=== PATIENT | male | born 1990 | race Caucasian/White ===

== ENCOUNTER 2017-04-03 10:49 | Inpatient (IN) | payer OTHER ==
[2017-04-03] MEDS ORDERED: NS 0.9% 1000 ML*IV.FLUID IV ONE (12:14)
[2017-04-03] MEDS ORDERED: Morphine INJ* 4 MG/ML 1 ML CARPUJECT IV ONE ×2 (12:16→15:23)
[2017-04-03] MEDS ORDERED: Ondansetron INJ* 2 MG/ML VIAL IV ONE (12:16)
[2017-04-03] MEDS ORDERED: Ciprofloxacin 400MG IVPREMIX(* 400 MG/200 ML BAG IVPB ONE (12:19)
[2017-04-03] MEDS ORDERED: metroNIDAZOLE IV 500 MG/100ML* 500 MG/100 ML BAG IVPB ONE (12:19)
[2017-04-03 13:25] LABS: Hematocrit 46 % (42-52); Hemoglobin 15.4 g/dl (14.0-18.0); Mean Corpuscular HGB Conc 34 g/dl (31-36); Mean Corpuscular Hemoglobin 30 pg (27-31); Mean Corpuscular Volume 91 fL (80-94); Mean Platelet Volume 8 um3 (7.4-10.4); Platelet Count 239 10^3/ul (150-450); Red Blood Count 5.08 10^6/ul (4.0-5.4); Red Cell Distribution Width 14 % (10.5-15); White Blood Count 13.8 10^3/ul (3.5-10.8)
[2017-04-03] MEDS ORDERED: Acetaminophen TAB* 325 MG PO ONE (13:26)
--- NOTE | 2017-04-03 13:26 | RAD ---
INDICATION: Tachycardia COMPARISON: None TECHNIQUE: An AP portable view obtained at 1255 hours is submitted. FINDINGS: Bones/Soft Tissues: There are no acute bony findings. Cardiomediastinal: The cardiomediastinal silhouette is normal. Lungs: There are no infiltrates. Pleura: There are no pleural effusions. Other: None IMPRESSION: NORMAL CHEST.
[2017-04-03 13:46] LABS: INR 1.19 (0.77-1.02)
[2017-04-03 13:55] LABS: ABS Basophils 0.1 10^3/ul (0-0.2); ABS Eosinophils 0 10^3/ul (0-0.6); ABS Lymphocytes 1.2 10^3/ul (1.0-4.8); ABS Monocytes 1.6 10^3/ul (0-0.8); ABS Neutrophils 10.9 10^3/ul (1.5-7.7); ABS Nucleated RBC 0 10^3/ul; Eosinophil % 0 % (0-6); Nucleated Red Blood Cells % 0
[2017-04-03 15:32] LABS: Urine Appearance Clear; Urine Blood Negative (Negative); Urine Color Yellow; Urine Ketones 2+ (Negative); Urine Protein Negative (Negative); Urine Urobilinogen Negative (Negative)
[2017-04-03 15:33] LABS: EGFR Non-African American 151.2 (>60)
[2017-04-03] MEDS ORDERED: Iohexol 300* (CONTRAST) 10 ML SDV IV ONE (15:46)
--- NOTE | 2017-04-03 16:38 | RAD ---
Indication: Abdominal pain. Contrast: Administered 115.1 ml of OMNIPAQUE 300 mg/ml CT of the abdomen and pelvis was performed after IV contrast administration. Coronal and sagittal reconstructed images were obtained. No oral contrast was administered. Lung bases demonstrate no pleural fluid, nodules or masses. Heart is of normal size without evidence of pericardial effusion. The liver is normal in size. There are no focal lesions or intrahepatic duct dilatation noted. The gallbladder demonstrates no calcified gallstones. No pericholecystic fluid or wall thickening is identified. The spleen is normal in size. The pancreas demonstrates no mass or pancreatic duct dilatation. The common duct is not dilated. No adrenal lesions are noted. The kidneys demonstrate symmetric nephrograms without focal lesions. No hydroureter is identified. Aorta and inferior vena cava are unremarkable. No dilated loops of bowel are noted. CT of the pelvis demonstrates normal appendix. Urinary bladder is otherwise unremarkable. No hernias are noted. There is no free intraperitoneal air noted. The stomach is poorly evaluated due to collapsed nature and lack of oral contrast. The bony structures are grossly unremarkable. IMPRESSION: No abnormal masses or fluid collections are noted. No free air is identified. The study is limited due to lack of oral contrast.
[2017-04-03] MEDS ORDERED: Pantoprazole IV* 40 MG IV ONE (17:59)
[2017-04-03] MEDS ORDERED: Ondansetron INJ* 2 MG/ML VIAL IV PRN (18:17)
[2017-04-03] MEDS ORDERED: metroNIDAZOLE IV 500 MG/100ML* 500 MG/100 ML BAG IVPB SCH (19:00)
--- NOTE | 2017-04-03 19:35 | ED ---
Declan Deshpande Thomas, scribed for Matthias Li MD on 04/03/17 at 1241 . Abdominal Pain/Male - HPI Summary HPI Summary: The patient is a 26 year old male presenting to the emergency department complaining of lower abdominal pain. He has a history of a perforated intestine that required surgery. Yesterday, the patient started feeling the same pains in his lower intestine with a severity of 9/10. He describes that he is unable to fart, and there is a pressure sensation, and the pain radiates to his lower back. The patient additionally complains of a sore throat, fever, and chills, for which he was given Ibuprofen, Tylenol, and a pain shot in the arm. He is incarcerated and was accompanied by two correctional officers today. He also has hepatitis C. - History of Current Complaint Chief Complaint: EDAbdPain Stated Complaint: ABD PAIN Time Seen by Provider: 04/03/17 11:49 Hx Obtained From: Patient Onset/Duration: Sudden Onset, Lasting Hours - The pain began last night., Still Present, Worse Since Timing: Constant Severity Initially: Severe Severity Currently: Severe Pain Intensity: 9 Pain Scale Used: 0-10 Numeric Location: Umbilical Radiates: Yes Radiates to: Back Character: Other: - Pressure - Allergies/Home Medications Allergies/Adverse Reactions: Allergies Allergy/AdvReac Type Severity Reaction Status Date / Time Amoxicillin Allergy Rash Verified 04/03/17 10:59 Codeine Allergy Hallucinati Verified 04/03/17 10:59 ons Penicillins Allergy Rash Verified 04/03/17 10:59 onions Allergy Swelling Uncoded 04/03/17 11:53 Of Face,Lips,& Throat Home Medications: Home Medications Acetaminophen TAB* [Tylenol TAB*] 650 mg PO Q6H PRN 04/03/17 [History Confirmed 04/03/17] Ibuprofen TAB* [Motrin TAB* 600 MG] 1 tab PO Q6H PRN 04/03/17 [History Confirmed 04/03/17] Magnesium Hydroxide LIQ* [Milk of Magnesia LIQ*] 30 ml PO .ONCE 04/03/17 [ History Confirmed 04/03/17] PMH/Surg Hx/FS Hx/Imm Hx GI History: Reports: Other GI Disorders - Bowel Perforation Psychiatric History: Reports: Hx Substance Abuse - Methamphetamine abuse Infectious Disease History: Yes Infectious Disease History: Denies: Traveled Outside the [place] in Last 30 Days - Family History Known Family History: Positive: Diabetes - Social History Alcohol Use: None Substance Use Type: Reports: Other Substance Use Comment - Amount & Last Used: Hx Meth use and Marijuan Smoking Status (MU): Former Smoker Review of Systems Positive: Fever, Chills Positive: Sore Throat Positive: Abdominal Pain Musculoskeletal: Other - Lower back pain All Other Systems Reviewed And Are Negative: Yes Physical Exam - Summary Physical Exam Summary: General: The patient is moderately ill appearing and has moderate pain distress. Skin: warm, color reflects adequate perfusion, dry Head: normal Eyes: EOMI, SARAH ENT: Posterior pharynx erythematous. The tonsils are 2+. Neck: supple, nontender Respiratory: CTA, breath sounds present Cardiovascular: Tachycardia. Regular rhythm. Abdomen: soft. Diffuse tenderness in the abdomen that is worse around the umbilicus. Bowel: hypoactive bowel sounds. Musculoskeletal: normal, strength/ROM intact Neurological: normal, sensory/motor intact, A&O x3 Psychological: affect/mood appropriate Triage Information Reviewed: Yes Vital Signs On Initial Exam: Initial Vitals Temp Pulse Resp BP Pulse Ox 99.6 F 113 16 159/82 97 04/03/17 10:59 04/03/17 10:59 04/03/17 10:59 04/03/17 10:59 04/03/17 10:59 Vital Signs Reviewed: Yes Diagnostics - Vital Signs Vital Signs Temp Pulse Resp BP Pulse Ox 04/03/17 11:52 102.5 F 04/03/17 11:50 113 120/84 99 04/03/17 11:48 116 99 04/03/17 10:59 99.6 F 113 16 159/82 97 - Laboratory Lab Results: Lab Results 04/03/17 04/03/17 04/03/17 Range/Units 11:17 12:56 13:11 WBC (3.5-10.8) 10^3/ul RBC (4.0-5.4) 10^6/ul Hgb (14.0-18.0) g/dl Hct (42-52) % MCV (80-94) fL MCH (27-31) pg MCHC (31-36) g/dl RDW (10.5-15) % Plt Count (150-450) 10^3/ul MPV (7.4-10.4) um3 Neut % (Auto) (38-83) % Lymph % (Auto) (25-47) % [place] % (Auto) (1-9) % Eos % (Auto) (0-6) % Baso % (Auto) (0-2) % Absolute Neuts (auto) (1.5-7.7) 10^3/ul Absolute Lymphs (auto) (1.0-4.8) 10^3/ul Absolute Monos (auto) (0-0.8) 10^3/ul Absolute Eos (auto) (0-0.6) 10^3/ul Absolute Basos (auto) (0-0.2) 10^3/ul Absolute Nucleated RBC 10^3/ul Nucleated RBC % INR (Anticoag Therapy) (0.77-1.02) APTT (26.0-36.3) seconds Sodium 133 (133-145) mmol/L Potassium 3.7 (3.5-5.0) mmol/L Chloride 100 L (101-111) mmol/L Carbon Dioxide 21 L (22-32) mmol/L Anion Gap 12 H (2-11) mmol/L BUN 8 (6-24) mg/dL Creatinine 0.64 L (0.67-1.17) mg/dL Est GFR ( Amer) 194.4 (>60) Est GFR (Non-Af Amer) 151.2 (>60) BUN/Creatinine Ratio 12.5 (8-20) Glucose 111 H (70-100) mg/dL Lactic Acid 0.7 (0.5-2.0) mmol/L Calcium 9.0 (8.6-10.3) mg/dL Total Bilirubin 0.40 (0.2-1.0) mg/dL AST 21 (13-39) U/L ALT 74 H (7-52) U/L Alkaline Phosphatase 60 (34-104) U/L Troponin I 0.03 (<0.04) ng/mL C-Reactive Protein 178.18 H (< 5.00) mg/L Total Protein 7.6 (6.4-8.9) g/dL Albumin 3.9 (3.2-5.2) g/dL Globulin 3.7 (2-4) g/dL Albumin/Globulin Ratio 1.1 (1-3) Lipase 27 (11.0-82.0) U/L Urine Color Urine Appearance Urine pH (5-9) Ur Specific [place] (1.010-1.030) Urine Protein (Negative) Urine Ketones (Negative) Urine Blood (Negative) Urine Nitrate (Negative) Urine Bilirubin (Negative) Urine Urobilinogen (Negative) Ur Leukocyte Esterase (Negative) Urine Glucose (Negative) Influenza A (Rapid) (Negative) Influenza B (Rapid) (Negative) Group A Strep Rapid Negative (Negative) Blood Type Antibody Screen 04/03/17 04/03/17 04/03/17 Range/Units 13:11 13:11 13:11 WBC 13.8 H (3.5-10.8) 10^3/ul RBC 5.08 (4.0-5.4) 10^6/ul Hgb 15.4 (14.0-18.0) g/dl Hct 46 (42-52) % MCV 91 (80-94) fL MCH 30 (27-31) pg MCHC 34 (31-36) g/dl RDW 14 (10.5-15) % Plt Count 239 (150-450) 10^3/ul MPV 8 (7.4-10.4) um3 Neut % (Auto) 78.8 (38-83) % Lymph % (Auto) 9.0 L (25-47) % Valencia % (Auto) 11.3 H (1-9) % Eos % (Auto) 0 (0-6) % Baso % (Auto) 0.9 (0-2) % Absolute Neuts (auto) 10.9 H (1.5-7.7) 10^3/ul Absolute Lymphs (auto) 1.2 (1.0-4.8) 10^3/ul Absolute Monos (auto) 1.6 H (0-0.8) 10^3/ul Absolute Eos (auto) 0 (0-0.6) 10^3/ul Absolute Basos (auto) 0.1 (0-0.2) 10^3/ul Absolute Nucleated RBC 0 10^3/ul Nucleated RBC % 0 INR (Anticoag Therapy) 1.19 H (0.77-1.02) APTT 34.0 (26.0-36.3) seconds Sodium (133-145) mmol/L Potassium (3.5-5.0) mmol/L Chloride (101-111) mmol/L Carbon Dioxide (22-32) mmol/L Anion Gap (2-11) mmol/L BUN (6-24) mg/dL Creatinine (0.67-1.17) mg/dL Est GFR ( Amer) (>60) Est GFR (Non-Af Amer) (>60) BUN/Creatinine Ratio (8-20) Glucose (70-100) mg/dL Lactic Acid (0.5-2.0) mmol/L Calcium (8.6-10.3) mg/dL Total Bilirubin (0.2-1.0) mg/dL AST (13-39) U/L ALT (7-52) U/L Alkaline Phosphatase (34-104) U/L Troponin I (<0.04) ng/mL C-Reactive Protein (< 5.00) mg/L Total Protein (6.4-8.9) g/dL Albumin (3.2-5.2) g/dL Globulin (2-4) g/dL Albumin/Globulin Ratio (1-3) Lipase (11.0-82.0) U/L Urine Color Urine Appearance Urine pH (5-9) Ur Specific [place] (1.010-1.030) Urine Protein (Negative) Urine Ketones (Negative) Urine Blood (Negative) Urine Nitrate (Negative) Urine Bilirubin (Negative) Urine Urobilinogen (Negative) Ur Leukocyte Esterase (Negative) Urine Glucose (Negative) Influenza A (Rapid) (Negative) Influenza B (Rapid) (Negative) Group A Strep Rapid (Negative) Blood Type A Positive Antibody Screen Negative 04/03/17 04/03/17 04/03/17 Range/Units 13:11 13:22 15:23 WBC (3.5-10.8) 10^3/ul RBC (4.0-5.4) 10^6/ul Hgb (14.0-18.0) g/dl Hct (42-52) % MCV (80-94) fL MCH (27-31) pg MCHC (31-36) g/dl RDW (10.5-15) % Plt Count (150-450) 10^3/ul MPV (7.4-10.4) um3 Neut % (Auto) (38-83) % Lymph % (Auto) (25-47) % [place] % (Auto) (1-9) % Eos % (Auto) (0-6) % Baso % (Auto) (0-2) % Absolute Neuts (auto) (1.5-7.7) 10^3/ul Absolute Lymphs (auto) (1.0-4.8) 10^3/ul Absolute Monos (auto) (0-0.8) 10^3/ul Absolute Eos (auto) (0-0.6) 10^3/ul Absolute Basos (auto) (0-0.2) 10^3/ul Absolute Nucleated RBC 10^3/ul Nucleated RBC % INR (Anticoag Therapy) (0.77-1.02) APTT (26.0-36.3) seconds Sodium (133-145) mmol/L Potassium (3.5-5.0) mmol/L Chloride (101-111) mmol/L Carbon Dioxide (22-32) mmol/L Anion Gap (2-11) mmol/L BUN (6-24) mg/dL Creatinine (0.67-1.17) mg/dL Est GFR ( Amer) (>60) Est GFR (Non-Af Amer) (>60) BUN/Creatinine Ratio (8-20) Glucose (70-100) mg/dL Lactic Acid 0.9 (0.5-2.0) mmol/L Calcium (8.6-10.3) mg/dL Total Bilirubin (0.2-1.0) mg/dL AST (13-39) U/L ALT (7-52) U/L Alkaline Phosphatase (34-104) U/L Troponin I (<0.04) ng/mL C-Reactive Protein (< 5.00) mg/L Total Protein (6.4-8.9) g/dL Albumin (3.2-5.2) g/dL Globulin (2-4) g/dL Albumin/Globulin Ratio (1-3) Lipase (11.0-82.0) U/L Urine Color Yellow Urine Appearance Clear Urine pH 6.0 (5-9) Ur Specific [place] 1.020 (1.010-1.030) Urine Protein Negative (Negative) Urine Ketones 2+ H (Negative) Urine Blood Negative (Negative) Urine Nitrate Negative (Negative) Urine Bilirubin Negative (Negative) Urine Urobilinogen Negative (Negative) Ur Leukocyte Esterase Negative (Negative) Urine Glucose Negative (Negative) Influenza A (Rapid) Negative (Negative) Influenza B (Rapid) Negative (Negative) Group A Strep Rapid (Negative) Blood Type Antibody Screen Result Diagrams: 04/03/17 13:11 04/03/17 13:11 Lab Statement: Any lab studies that have been ordered have been reviewed, and results considered in the medical decision making process. - Radiology CXR Xray Interpretation: No Acute Changes - NORMAL CHEST. Dr. Li has reviewed this report. Radiology Interpretation Completed By: Radiologist - CT CT Abd/Pel CT Interpretation: No Acute Changes - No abnormal masses or fluid collections are noted. No free air is identified. The study is limited due to lack of oral contrast. Dr. Li has reviewed this report. CT Interpretation Completed By: Radiologist - EKG 12:14 Cardiac Rate: Tachycardia EKG Rhythm: Sinus Tachycardia - at 114 BPM EKG Interpretation: Normal ST. No ectopy. Abdominal Pain Fem Course/Dx - Course Course Of Treatment: Medications reviewed. Allergies noted. BP noted and advised follow up with PMD. ADMIT HOSPITALIST - Diagnoses Provider Diagnoses: Blood pressure elevated without history of HTN, Abdominal pain, Fever - Provider Notifications Discussed Care Of Patient With: Antonio Dewitt Time Discussed With Above Provider: 17:32 Instructed by Provider To: Admit As Inpatient Discharge - Discharge Plan Condition: Stable Disposition: ADMITTED TO [facility] The documentation as recorded by the Declan lora Thomas accurately reflects the service I personally performed and the decisions made by Jen kahn William, MD.
[2017-04-03] MEDS: Morphine INJ* 4 MG/ML 1 ML CARPUJECT IV PRN (19:58)
[2017-04-03] MEDS: Acetaminophen TAB* 325 MG PO PRN (19:59)
[2017-04-03] MEDS: NS 0.9% 1000 ML* 1,000 ML IV SCH (20:10)
--- NOTE | 2017-04-03 20:59 | HP ---
CC: [facility]. * HISTORY AND PHYSICAL: DATE OF ADMISSION: 04/03/17 PRIMARY CARE PROVIDER: [facility]. ATTENDING PHYSICIAN WHILE IN THE HOSPITAL: Rodrick Isaac MD * (report dictated by Ronnie Bagley NP). CHIEF COMPLAINT: Not feeling well. HISTORY OF PRESENT ILLNESS: Mr. Leach is a 26-year-old male patient. He has a history of perforated ulcer in the past requiring a oversew. He has a history of GERD and hepatitis C. He comes into our ER today stating that Friday and Friday he just was not feeling well, he was feeling fatigued, he was feeling weakened. He was feeling just tired and just not feeling well. He was aching all over and he started having a sore throat last couple of days. He was having difficulty swallowing. He started having some abdominal discomfort, particularly in the epigastric area. He says he has not had a bowel movement in a couple of days. There has not been any nausea or vomiting. He says he went to the [facility] 2 days ago and he has been there last couple of days, but he started today having abdominal discomfort. Given the history, he had the surgery back in January, there was concern and he was sent to the hospital for evaluation. The surgery he had in January was the stomach oversew for the perforated ulcer. He came into the ED today, there was no obvious source for this fever. He said he recently was diagnosed with hepatitis C, he was tested negative for HIV. He says he is nauseous, but no sick contacts but he is in again a correctional facility. He was evaluated here in the ED, he was cultured , no obvious source was found, but it was noted that he was still continuing to have elevated fevers, we were asked to evaluate for admission. PAST MEDICAL HISTORY: Significant for, 1. GERD. 2. Peptic ulcer disease. 3. Hepatitis C. PAST SURGICAL HISTORY: He has had an oversew of a perforated ulcer done in January of 2017. MEDICATIONS: Home meds include: 1. Milk of mag 30 cc p.o. daily as needed. 2. Ibuprofen 1 tablet p.o. every 6 hours as needed. 3. Tylenol 650 mg every 6 hours as needed. ALLERGIES: He is allergic to PENICILLIN and CODEINE. FAMILY HISTORY: His mother, he says is healthy. Father has high blood pressure. SOCIAL HISTORY: He is an IV drug user. He does have a history of smoking 2 packs a day for 3 years, but since being in [place], it is about 4 cigarettes a day. He does not drink alcohol. Surrogate decision maker is not appointed at this point. REVIEW OF SYSTEMS: There is a documented fever here. He denied any significant weight change. There was no double vision. There is no ear discharge. He denies having any rhinorrhea. There was sore throat. He denied any thyroid enlargement. There was no chest pain, no orthopnea, no nocturnal dyspnea. There was no abdominal pain, there was no nausea or vomiting. There was no dysuria, there was no frequency. There was no seizure, no loss of consciousness. No pruritus, and no skin ulcerations. Review of 14 systems completed, all others negative. PHYSICAL EXAMINATION GENERAL: At this time, Mr. Leach is a 26-year-old male patient. He appears to be well nourished, well developed. He does not appear to be in any acute distress. VITAL SIGNS: Blood pressure 130/72, pulse 96, respirations 20, O2 sat 96% on room air. Temperature was 101, it was as high as 105.9. HEENT: Head: Atraumatic. Eyes: EOMs are intact. Sclerae are anicteric and not pale. NECK: Supple. Throat: Oral mucosa appears to be dry. No oropharyngeal erythema. LUNGS: Clear to auscultation. No wheezes, rales, or rhonchi. HEART: Sounds S1, S2. Regular rate and rhythm, no murmur, rubs or gallops. ABDOMEN: Soft, flat. There is tenderness around the umbilicus, but bowel sounds were present. EXTREMITIES: Pulses were 2+ throughout and 5/5 strength. NEUROLOGIC: He is awake, alert, oriented x3. No gross focal deficits. SKIN: Intact. He does have a midline abdominal incision. There is no erythema or discharge or drainage noted. Otherwise his skin was intact. DIAGNOSTIC STUDIES/LABORATORY DATA: WBC of 13.8, RBC of 5.08, hemoglobin of 15.4, hematocrit 46, platelet count of 239. INR is 1.19. PTT of 34. His sodium was 134, potassium was 3.7, chloride 100, bicarb was 21, BUN 8, creatinine 0.64, glucose 111, lactate 0.7, calcium 9, total bili is 0.4, AST 21 , ALT 74, alk phos 60. Troponin 0.03. CRP of 178. Lipase normal. Urine obtained, negative serologies, negative for strep and flu. Abdomen and pelvis CT obtained, impression: No abnormal mass or fluid collections are noted. No free air is identified. Study is limited to lack of oral contrast. He had a normal chest x-ray. He had an EKG showing a sinus tachycardia, rate of 114, no ST elevations or T-wave inversions. Old medical records were reviewed. IMPRESSION: Mr. Leach is a 26-year-old male patient coming into the ED today with complaints of sore throat, not feeling well, fatigued over the last several days. We were asked to evaluate for admission and he will be on observatory status for: 1. Fever. At this point, etiology is unclear. He is being pancultured. I think we should we should send off an HIV1 and 2, EBV panel and mono swab. Continue with IV fluids. I did put him on Ciprofloxacin and Flagyl. We will continue with normal saline at 150 an hour and will continue with supportive care. 2. Abdominal discomfort: At this point, his exam does appear to be benign. We will follow serial abdominal exams. If it does become an issue, we can also consult Surgery, but at this point, his abdomen is soft, he is not overtly tender, he is not guarding. I think we can just follow these. 3. History of perforated ulcer and gastroesophageal reflux disease. I have ordered PPI therapy. I would avoid using the ibuprofen. 4. History of hepatitis C. Can follow in the outpatient setting. He does not appear to be in fulminant hepatitis at this point, we will monitor. 5. DVT prophylaxis: SCDs have been ordered. 6. Code status: Full code. 7. Fluid and nutrition: He can have clear liquid diet. TIME SPENT: Time spent on the admission was 60 minutes, greater than half of the time was spent [id number] with the patient, obtaining history and physical , the other half of the time was spent going over the plan of care with the patient and implementing the plan of care. I did discuss plan of care with my attending, Dr. Isaac, he is in agreement. RONNIE BAGLEY NP [id number]/[facility] #: [id number] KIERAN
[2017-04-03] MEDS: metroNIDAZOLE IV 500 MG/100ML* 500 MG/100 ML BAG IVPB SCH (22:00)
[2017-04-03] MEDS: Senna TAB PO SCH (22:00)
[2017-04-03] MEDS: Docusate CAP* 100 MG PO SCH (22:00)
[2017-04-04] MEDS: Morphine INJ* 4 MG/ML 1 ML CARPUJECT IV PRN ×3 (00:08→08:13)
[2017-04-04] MEDS ORDERED: Ciprofloxacin 400MG IVPREMIX(* 400 MG/200 ML BAG IVPB SCH (02:00)
[2017-04-04] MEDS: Omeprazole CAP* 20 MG PO SCH (05:16)
[2017-04-04] MEDS: NS 0.9% 1000 ML* 1,000 ML IV SCH ×4 (05:16→21:05)
[2017-04-04] MEDS: metroNIDAZOLE IV 500 MG/100ML* 500 MG/100 ML BAG IVPB SCH (06:32)
[2017-04-04 06:35] LABS: Hematocrit 39 % (42-52); Hemoglobin 13.4 g/dl (14.0-18.0); Mean Corpuscular HGB Conc 34 g/dl (31-36); Mean Corpuscular Hemoglobin 31 pg (27-31); Mean Corpuscular Volume 91 fL (80-94); Mean Platelet Volume 7 um3 (7.4-10.4); Platelet Count 190 10^3/ul (150-450); Red Blood Count 4.32 10^6/ul (4.0-5.4); Red Cell Distribution Width 14 % (10.5-15)
[2017-04-04 06:37] LABS: ABS Basophils 0 10^3/ul (0-0.2); ABS Eosinophils 0.1 10^3/ul (0-0.6); ABS Lymphocytes 1.7 10^3/ul (1.0-4.8); ABS Monocytes 1.6 10^3/ul (0-0.8); ABS Neutrophils 6.6 10^3/ul (1.5-7.7); ABS Nucleated RBC 0 10^3/ul; Eosinophil % 0.9 % (0-6); Lymphocyte % 17.2 % (25-47); Nucleated Red Blood Cells % 0
[2017-04-04 06:53] LABS: INR 1.16 (0.77-1.02)
[2017-04-04] MEDS: Docusate CAP* 100 MG PO SCH ×2 (08:13→21:04)
--- NOTE | 2017-04-04 12:14 | PN ---
Subjective Date of Service: 04/04/17 Interval History: Abdominal pain present but not as severe. No BM or flatus x 2 days. +JUDD, no nausea/vomiting changes in vision, or neck stiffness +throat pain no cough Objective Active Medications: Acetaminophen (Tylenol Tab*) 650 mg PO Q4H PRN PRN Reason: FEVER/PAIN Last Admin: 04/04/17 00:00 Dose: 650 mg Docusate Sodium (Colace Cap*) 100 mg PO BID [facility] Last Admin: 04/04/17 08:13 Dose: 100 mg Sodium Chloride (Ns 0.9% 1000 Ml*) 1,000 mls @ 150 mls/hr IV PER RATE [facility] Last Admin: 04/04/17 05:16 Dose: 150 mls/hr Morphine Sulfate (Morphine Inj (Syringe)*) 4 mg IV Q4H PRN PRN Reason: PAIN Last Admin: 04/04/17 08:13 Dose: 4 mg Omeprazole (Prilosec Cap*) 20 mg PO 0600 [facility] Last Admin: 04/04/17 05:16 Dose: 20 mg Ondansetron HCl (Zofran Inj*) 4 mg IV Q6H PRN PRN Reason: NAUSEA Senna (Senokot Tab*) 2 tab PO BEDTIME [facility] Last Admin: 04/03/17 22:00 Dose: 2 tab Oxygen Devices in Use Now: None Appearance: well appearing, NAD Eyes: No Scleral Icterus, PERRLA Ears/Nose/Mouth/Throat: Mucous Membranes Moist, - - b/l tonsillar swelling with exudates Neck: NL Appearance and Movements; NL JVP, Trachea Midline, - - no LIZANDRO Respiratory: Symmetrical Chest Expansion and Respiratory Effort, Clear to Auscultation Cardiovascular: NL Sounds; No Murmurs; No JVD, RRR Abdominal: No Hepatosplenomegaly, - - soft, +bs, ND, mild epigastric TTP Extremities: No Edema, No Clubbing, Cyanosis Skin: No Rash or Ulcers, No Nodules or Sclerosis Neurological: Alert and Oriented x 3 Result Diagrams: 04/04/17 06:29 04/04/17 06:29 Additional Lab and Data: Lab Results 04/03/17 04/03/17 04/03/17 Range/Units 11:17 12:56 13:11 WBC (3.5-10.8) 10^3/ul RBC (4.0-5.4) 10^6/ul Hgb (14.0-18.0) g/dl Hct (42-52) % MCV (80-94) fL MCH (27-31) pg MCHC (31-36) g/dl RDW (10.5-15) % Plt Count (150-450) 10^3/ul MPV (7.4-10.4) um3 Neut % (Auto) (38-83) % Lymph % (Auto) (25-47) % [place] % (Auto) (1-9) % Eos % (Auto) (0-6) % Baso % (Auto) (0-2) % Absolute Neuts (auto) (1.5-7.7) 10^3/ul Absolute Lymphs (auto) (1.0-4.8) 10^3/ul Absolute Monos (auto) (0-0.8) 10^3/ul Absolute Eos (auto) (0-0.6) 10^3/ul Absolute Basos (auto) (0-0.2) 10^3/ul Absolute Nucleated RBC 10^3/ul Nucleated RBC % INR (Anticoag Therapy) (0.77-1.02) APTT (26.0-36.3) seconds Sodium 133 (133-145) mmol/L Potassium 3.7 (3.5-5.0) mmol/L Chloride 100 L (101-111) mmol/L Carbon Dioxide 21 L (22-32) mmol/L Anion Gap 12 H (2-11) mmol/L BUN 8 (6-24) mg/dL Creatinine 0.64 L (0.67-1.17) mg/dL Est GFR ( Amer) 194.4 (>60) Est GFR (Non-Af Amer) 151.2 (>60) BUN/Creatinine Ratio 12.5 (8-20) Glucose 111 H (70-100) mg/dL Lactic Acid 0.7 (0.5-2.0) mmol/L Calcium 9.0 (8.6-10.3) mg/dL Total Bilirubin 0.40 (0.2-1.0) mg/dL AST 21 (13-39) U/L ALT 74 H (7-52) U/L Alkaline Phosphatase 60 (34-104) U/L Troponin I 0.03 (<0.04) ng/mL C-Reactive Protein 178.18 H (< 5.00) mg/L Total Protein 7.6 (6.4-8.9) g/dL Albumin 3.9 (3.2-5.2) g/dL Globulin 3.7 (2-4) g/dL Albumin/Globulin Ratio 1.1 (1-3) Lipase 27 (11.0-82.0) U/L Urine Color Urine Appearance Urine pH (5-9) Ur Specific [place] (1.010-1.030) Urine Protein (Negative) Urine Ketones (Negative) Urine Blood (Negative) Urine Nitrate (Negative) Urine Bilirubin (Negative) Urine Urobilinogen (Negative) Ur Leukocyte Esterase (Negative) Urine Glucose (Negative) Influenza A (Rapid) (Negative) Influenza B (Rapid) (Negative) Group A Strep Rapid Negative (Negative) Blood Type Antibody Screen 04/03/17 04/03/17 04/03/17 Range/Units 13:11 13:11 13:11 WBC 13.8 H (3.5-10.8) 10^3/ul RBC 5.08 (4.0-5.4) 10^6/ul Hgb 15.4 (14.0-18.0) g/dl Hct 46 (42-52) % MCV 91 (80-94) fL MCH 30 (27-31) pg MCHC 34 (31-36) g/dl RDW 14 (10.5-15) % Plt Count 239 (150-450) 10^3/ul MPV 8 (7.4-10.4) um3 Neut % (Auto) 78.8 (38-83) % Lymph % (Auto) 9.0 L (25-47) % [place] % (Auto) 11.3 H (1-9) % Eos % (Auto) 0 (0-6) % Baso % (Auto) 0.9 (0-2) % Absolute Neuts (auto) 10.9 H (1.5-7.7) 10^3/ul Absolute Lymphs (auto) 1.2 (1.0-4.8) 10^3/ul Absolute Monos (auto) 1.6 H (0-0.8) 10^3/ul Absolute Eos (auto) 0 (0-0.6) 10^3/ul Absolute Basos (auto) 0.1 (0-0.2) 10^3/ul Absolute Nucleated RBC 0 10^3/ul Nucleated RBC % 0 INR (Anticoag Therapy) 1.19 H (0.77-1.02) APTT 34.0 (26.0-36.3) seconds Sodium (133-145) mmol/L Potassium (3.5-5.0) mmol/L Chloride (101-111) mmol/L Carbon Dioxide (22-32) mmol/L Anion Gap (2-11) mmol/L BUN (6-24) mg/dL Creatinine (0.67-1.17) mg/dL Est GFR ( Amer) (>60) Est GFR (Non-Af Amer) (>60) BUN/Creatinine Ratio (8-20) Glucose (70-100) mg/dL Lactic Acid (0.5-2.0) mmol/L Calcium (8.6-10.3) mg/dL Total Bilirubin (0.2-1.0) mg/dL AST (13-39) U/L ALT (7-52) U/L Alkaline Phosphatase (34-104) U/L Troponin I (<0.04) ng/mL C-Reactive Protein (< 5.00) mg/L Total Protein (6.4-8.9) g/dL Albumin (3.2-5.2) g/dL Globulin (2-4) g/dL Albumin/Globulin Ratio (1-3) Lipase (11.0-82.0) U/L Urine Color Urine Appearance Urine pH (5-9) Ur Specific [place] (1.010-1.030) Urine Protein (Negative) Urine Ketones (Negative) Urine Blood (Negative) Urine Nitrate (Negative) Urine Bilirubin (Negative) Urine Urobilinogen (Negative) Ur Leukocyte Esterase (Negative) Urine Glucose (Negative) Influenza A (Rapid) (Negative) Influenza B (Rapid) (Negative) Group A Strep Rapid (Negative) Blood Type A Positive Antibody Screen Negative 04/03/17 04/03/17 04/03/17 Range/Units 13:11 13:22 15:23 WBC (3.5-10.8) 10^3/ul RBC (4.0-5.4) 10^6/ul Hgb (14.0-18.0) g/dl Hct (42-52) % MCV (80-94) fL MCH (27-31) pg MCHC (31-36) g/dl RDW (10.5-15) % Plt Count (150-450) 10^3/ul MPV (7.4-10.4) um3 Neut % (Auto) (38-83) % Lymph % (Auto) (25-47) % [place] % (Auto) (1-9) % Eos % (Auto) (0-6) % Baso % (Auto) (0-2) % Absolute Neuts (auto) (1.5-7.7) 10^3/ul Absolute Lymphs (auto) (1.0-4.8) 10^3/ul Absolute Monos (auto) (0-0.8) 10^3/ul Absolute Eos (auto) (0-0.6) 10^3/ul Absolute Basos (auto) (0-0.2) 10^3/ul Absolute Nucleated RBC 10^3/ul Nucleated RBC % INR (Anticoag Therapy) (0.77-1.02) APTT (26.0-36.3) seconds Sodium (133-145) mmol/L Potassium (3.5-5.0) mmol/L Chloride (101-111) mmol/L Carbon Dioxide (22-32) mmol/L Anion Gap (2-11) mmol/L BUN (6-24) mg/dL Creatinine (0.67-1.17) mg/dL Est GFR ( Amer) (>60) Est GFR (Non-Af Amer) (>60) BUN/Creatinine Ratio (8-20) Glucose (70-100) mg/dL Lactic Acid 0.9 (0.5-2.0) mmol/L Calcium (8.6-10.3) mg/dL Total Bilirubin (0.2-1.0) mg/dL AST (13-39) U/L ALT (7-52) U/L Alkaline Phosphatase (34-104) U/L Troponin I (<0.04) ng/mL C-Reactive Protein (< 5.00) mg/L Total Protein (6.4-8.9) g/dL Albumin (3.2-5.2) g/dL Globulin (2-4) g/dL Albumin/Globulin Ratio (1-3) Lipase (11.0-82.0) U/L Urine Color Yellow Urine Appearance Clear Urine pH 6.0 (5-9) Ur Specific [place] 1.020 (1.010-1.030) Urine Protein Negative (Negative) Urine Ketones 2+ H (Negative) Urine Blood Negative (Negative) Urine Nitrate Negative (Negative) Urine Bilirubin Negative (Negative) Urine Urobilinogen Negative (Negative) Ur Leukocyte Esterase Negative (Negative) Urine Glucose Negative (Negative) Influenza A (Rapid) Negative (Negative) Influenza B (Rapid) Negative (Negative) Group A Strep Rapid (Negative) Blood Type Antibody Screen Assess/Plan/Problems-Billing Assessment: 26 yo M presents with 5 days chills/myalgias, headache and 2 days abdominal pain found with high fevers - Patient Problems (1) Sepsis Comment: +sirs on admission but +1 on qsofa High fevers associated with tonsilar swelling and exudates as well as relative monocytosis Check GC orophargyngeal swab Check throat cultures Change abx to clindamycin HIV results still pending Influenza remains on the differential despite negative result - fevers/myalgias/ JUDD and other inmates recently with Flu Doubt meningitis - 1 week illness, generally getting better, no mental status changes or otehr neurologic involevment (2) Monocytosis Comment: Doubt malignancy syphilis, endocarditis, TB - but no other associated associated symptoms (3) Abdominal pain Comment: h/o perferated ulcer no flatus CT abd/pelvis but no obstruction monitor for worsening symptoms can consider repeat with contrast if warrented (4) DVT prophylaxis Comment: lovenox
[2017-04-04] MEDS: Morphine INJ* 2 MG/ML 1 ML SYRINGE (TWO MG - NEW SYRINGE VERSION) IV PRN ×3 (13:02→22:29)
[2017-04-04] MEDS: Enoxaparin(*) 40 MG/0.4 ML SYR SUBCUT SCH (13:03)
[2017-04-04] MEDS: Clindamycin 600 MG IVPREMIX(* 600 MG/50 ML SDV IV SCH ×2 (13:29→21:05)
[2017-04-04] MEDS: Senna TAB PO SCH (21:04)
[2017-04-04] MEDS: Acetaminophen TAB* 325 MG PO PRN ×2 (21:05)
[2017-04-05] MEDS: NS 0.9% 1000 ML* 1,000 ML IV SCH (04:47)
[2017-04-05] MEDS: Clindamycin 600 MG IVPREMIX(* 600 MG/50 ML SDV IV SCH ×3 (04:47→21:09)
[2017-04-05] MEDS: Morphine INJ* 2 MG/ML 1 ML SYRINGE (TWO MG - NEW SYRINGE VERSION) IV PRN (04:55)
[2017-04-05] MEDS: Omeprazole CAP* 20 MG PO SCH (04:55)
--- NOTE | 2017-04-05 07:56 | PN ---
Subjective Date of Service: 04/05/17 Interval History: Pt states he still feels poorly. He states he still has abdominal pain, he has not had a BM and has not passed any gas. He does admit to being hungry however. He states his throat is also still sore. Objective Active Medications: Acetaminophen (Tylenol Tab*) 650 mg PO Q4H PRN PRN Reason: FEVER/PAIN Last Admin: 04/04/17 21:05 Dose: 650 mg Docusate Sodium (Colace Cap*) 100 mg PO BID [facility] Last Admin: 04/04/17 21:04 Dose: 100 mg Enoxaparin Sodium (Lovenox(*)) 40 mg SUBCUT Q24H [facility] Last Admin: 04/04/17 13:03 Dose: 40 mg Sodium Chloride (Ns 0.9% 1000 Ml*) 1,000 mls @ 150 mls/hr IV PER RATE [facility] Last Admin: 04/05/17 04:47 Dose: 150 mls/hr Clindamycin HCl/Dextrose (Cleocin 600 Mg Ivpremix(*) Sdv) 600 mg in 50 mls @ 100 mls/hr IV Q8H [facility] Last Admin: 04/05/17 04:47 Dose: 100 mls/hr Morphine Sulfate (Morphine Inj (Syringe)*) 2 mg IV Q4H PRN PRN Reason: PAIN Last Admin: 04/05/17 04:55 Dose: 2 mg Omeprazole (Prilosec Cap*) 20 mg PO 0600 [facility] Last Admin: 04/05/17 04:55 Dose: 20 mg Ondansetron HCl (Zofran Inj*) 4 mg IV Q6H PRN PRN Reason: NAUSEA Senna (Senokot Tab*) 2 tab PO BEDTIME [facility] Last Admin: 04/04/17 21:04 Dose: 2 tab Vital Signs - 8 hr 04/05/17 04/05/17 04/05/17 02:17 03:36 04:55 Temperature 97.5 F Pulse Rate 65 Respiratory 16 16 18 Rate Blood Pressure 127/70 (mmHg) O2 Sat by Pulse 100 Oximetry 04/05/17 06:14 Temperature Pulse Rate Respiratory 14 Rate Blood Pressure (mmHg) O2 Sat by Pulse Oximetry Oxygen Devices in Use Now: None Appearance: Young male standing in room, NAD Eyes: No Scleral Icterus Ears/Nose/Mouth/Throat: Mucous Membranes Moist Respiratory: Symmetrical Chest Expansion and Respiratory Effort, Clear to Auscultation Cardiovascular: NL Sounds; No Murmurs; No JVD, RRR, No Edema Abdominal: NL Sounds; No Tenderness; No Distention Extremities: No Clubbing, Cyanosis Skin: No Rash or Ulcers, No Nodules or Sclerosis Neurological: Alert and Oriented x 3 Result Diagrams: 04/04/17 06:29 04/04/17 06:29 Additional Lab and Data: Lab Results 04/03/17 04/03/17 04/03/17 Range/Units 11:17 12:56 13:11 WBC (3.5-10.8) 10^3/ul RBC (4.0-5.4) 10^6/ul Hgb (14.0-18.0) g/dl Hct (42-52) % MCV (80-94) fL MCH (27-31) pg MCHC (31-36) g/dl RDW (10.5-15) % Plt Count (150-450) 10^3/ul MPV (7.4-10.4) um3 Neut % (Auto) (38-83) % Lymph % (Auto) (25-47) % [place] % (Auto) (1-9) % Eos % (Auto) (0-6) % Baso % (Auto) (0-2) % Absolute Neuts (auto) (1.5-7.7) 10^3/ul Absolute Lymphs (auto) (1.0-4.8) 10^3/ul Absolute Monos (auto) (0-0.8) 10^3/ul Absolute Eos (auto) (0-0.6) 10^3/ul Absolute Basos (auto) (0-0.2) 10^3/ul Absolute Nucleated RBC 10^3/ul Nucleated RBC % INR (Anticoag Therapy) (0.77-1.02) APTT (26.0-36.3) seconds Sodium 133 (133-145) mmol/L Potassium 3.7 (3.5-5.0) mmol/L Chloride 100 L (101-111) mmol/L Carbon Dioxide 21 L (22-32) mmol/L Anion Gap 12 H (2-11) mmol/L BUN 8 (6-24) mg/dL Creatinine 0.64 L (0.67-1.17) mg/dL Est GFR ( Amer) 194.4 (>60) Est GFR (Non-Af Amer) 151.2 (>60) BUN/Creatinine Ratio 12.5 (8-20) Glucose 111 H (70-100) mg/dL Lactic Acid 0.7 (0.5-2.0) mmol/L Calcium 9.0 (8.6-10.3) mg/dL Total Bilirubin 0.40 (0.2-1.0) mg/dL AST 21 (13-39) U/L ALT 74 H (7-52) U/L Alkaline Phosphatase 60 (34-104) U/L Troponin I 0.03 (<0.04) ng/mL C-Reactive Protein 178.18 H (< 5.00) mg/L Total Protein 7.6 (6.4-8.9) g/dL Albumin 3.9 (3.2-5.2) g/dL Globulin 3.7 (2-4) g/dL Albumin/Globulin Ratio 1.1 (1-3) Lipase 27 (11.0-82.0) U/L Urine Color Urine Appearance Urine pH (5-9) Ur Specific [place] (1.010-1.030) Urine Protein (Negative) Urine Ketones (Negative) Urine Blood (Negative) Urine Nitrate (Negative) Urine Bilirubin (Negative) Urine Urobilinogen (Negative) Ur Leukocyte Esterase (Negative) Urine Glucose (Negative) Influenza A (Rapid) (Negative) Influenza B (Rapid) (Negative) Group A Strep Rapid Negative (Negative) Blood Type Antibody Screen 04/03/17 04/03/17 04/03/17 Range/Units 13:11 13:11 13:11 WBC 13.8 H (3.5-10.8) 10^3/ul RBC 5.08 (4.0-5.4) 10^6/ul Hgb 15.4 (14.0-18.0) g/dl Hct 46 (42-52) % MCV 91 (80-94) fL MCH 30 (27-31) pg MCHC 34 (31-36) g/dl RDW 14 (10.5-15) % Plt Count 239 (150-450) 10^3/ul MPV 8 (7.4-10.4) um3 Neut % (Auto) 78.8 (38-83) % Lymph % (Auto) 9.0 L (25-47) % [place] % (Auto) 11.3 H (1-9) % Eos % (Auto) 0 (0-6) % Baso % (Auto) 0.9 (0-2) % Absolute Neuts (auto) 10.9 H (1.5-7.7) 10^3/ul Absolute Lymphs (auto) 1.2 (1.0-4.8) 10^3/ul Absolute Monos (auto) 1.6 H (0-0.8) 10^3/ul Absolute Eos (auto) 0 (0-0.6) 10^3/ul Absolute Basos (auto) 0.1 (0-0.2) 10^3/ul Absolute Nucleated RBC 0 10^3/ul Nucleated RBC % 0 INR (Anticoag Therapy) 1.19 H (0.77-1.02) APTT 34.0 (26.0-36.3) seconds Sodium (133-145) mmol/L Potassium (3.5-5.0) mmol/L Chloride (101-111) mmol/L Carbon Dioxide (22-32) mmol/L Anion Gap (2-11) mmol/L BUN (6-24) mg/dL Creatinine (0.67-1.17) mg/dL Est GFR ( Amer) (>60) Est GFR (Non-Af Amer) (>60) BUN/Creatinine Ratio (8-20) Glucose (70-100) mg/dL Lactic Acid (0.5-2.0) mmol/L Calcium (8.6-10.3) mg/dL Total Bilirubin (0.2-1.0) mg/dL AST (13-39) U/L ALT (7-52) U/L Alkaline Phosphatase (34-104) U/L Troponin I (<0.04) ng/mL C-Reactive Protein (< 5.00) mg/L Total Protein (6.4-8.9) g/dL Albumin (3.2-5.2) g/dL Globulin (2-4) g/dL Albumin/Globulin Ratio (1-3) Lipase (11.0-82.0) U/L Urine Color Urine Appearance Urine pH (5-9) Ur Specific [place] (1.010-1.030) Urine Protein (Negative) Urine Ketones (Negative) Urine Blood (Negative) Urine Nitrate (Negative) Urine Bilirubin (Negative) Urine Urobilinogen (Negative) Ur Leukocyte Esterase (Negative) Urine Glucose (Negative) Influenza A (Rapid) (Negative) Influenza B (Rapid) (Negative) Group A Strep Rapid (Negative) Blood Type A Positive Antibody Screen Negative 04/03/17 04/03/17 04/03/17 Range/Units 13:11 13:22 15:23 WBC (3.5-10.8) 10^3/ul RBC (4.0-5.4) 10^6/ul Hgb (14.0-18.0) g/dl Hct (42-52) % MCV (80-94) fL MCH (27-31) pg MCHC (31-36) g/dl RDW (10.5-15) % Plt Count (150-450) 10^3/ul MPV (7.4-10.4) um3 Neut % (Auto) (38-83) % Lymph % (Auto) (25-47) % [place] % (Auto) (1-9) % Eos % (Auto) (0-6) % Baso % (Auto) (0-2) % Absolute Neuts (auto) (1.5-7.7) 10^3/ul Absolute Lymphs (auto) (1.0-4.8) 10^3/ul Absolute Monos (auto) (0-0.8) 10^3/ul Absolute Eos (auto) (0-0.6) 10^3/ul Absolute Basos (auto) (0-0.2) 10^3/ul Absolute Nucleated RBC 10^3/ul Nucleated RBC % INR (Anticoag Therapy) (0.77-1.02) APTT (26.0-36.3) seconds Sodium (133-145) mmol/L Potassium (3.5-5.0) mmol/L Chloride (101-111) mmol/L Carbon Dioxide (22-32) mmol/L Anion Gap (2-11) mmol/L BUN (6-24) mg/dL Creatinine (0.67-1.17) mg/dL Est GFR ( Amer) (>60) Est GFR (Non-Af Amer) (>60) BUN/Creatinine Ratio (8-20) Glucose (70-100) mg/dL Lactic Acid 0.9 (0.5-2.0) mmol/L Calcium (8.6-10.3) mg/dL Total Bilirubin (0.2-1.0) mg/dL AST (13-39) U/L ALT (7-52) U/L Alkaline Phosphatase (34-104) U/L Troponin I (<0.04) ng/mL C-Reactive Protein (< 5.00) mg/L Total Protein (6.4-8.9) g/dL Albumin (3.2-5.2) g/dL Globulin (2-4) g/dL Albumin/Globulin Ratio (1-3) Lipase (11.0-82.0) U/L Urine Color Yellow Urine Appearance Clear Urine pH 6.0 (5-9) Ur Specific [place] 1.020 (1.010-1.030) Urine Protein Negative (Negative) Urine Ketones 2+ H (Negative) Urine Blood Negative (Negative) Urine Nitrate Negative (Negative) Urine Bilirubin Negative (Negative) Urine Urobilinogen Negative (Negative) Ur Leukocyte Esterase Negative (Negative) Urine Glucose Negative (Negative) Influenza A (Rapid) Negative (Negative) Influenza B (Rapid) Negative (Negative) Group A Strep Rapid (Negative) Blood Type Antibody Screen Assess/Plan/Problems-Billing Mr Leach is a 26 yo M who presents with 5 days chills/myalgias, headache and 2 days abdominal pain found to have a fever and possible pharyngitis though no clear cause of his abdominal pain has been found. - Patient Problems (1) Pharyngitis Current Visit: Yes Status: Acute Code(s): J02.9 - ACUTE PHARYNGITIS, UNSPECIFIED SNOMED Code(s): 489315359 Comment: I suspect the patient's fever was secondary to a viral pharyngitis. His tonsil are mildly enlarged but no exudate noted. His fever has resolved. Throat culture is pending. Will continue clindamycin for now. (2) Abdominal pain Current Visit: Yes Status: Acute Code(s): R10.9 - UNSPECIFIED ABDOMINAL PAIN SNOMED Code(s): 11683161 Comment: The etiology of the abdominal pain is not clear. He reports no BM or flatus, though he feels hungry. He does not have concerning signs on exam. Will advance his diet to regular and monitor for worsened symptoms. (3) DVT prophylaxis Current Visit: Yes Status: Acute Code(s): MPX0474 - SNOMED Code(s): 689303443 Comment: bran (4) Full code status Current Visit: Yes Status: Acute Code(s): Z78.9 - OTHER SPECIFIED HEALTH STATUS SNOMED Code(s): 555807488
[2017-04-05] MEDS ORDERED: Ibuprofen TAB* 600 MG PO PRN (07:58)
[2017-04-05] MEDS: Docusate CAP* 100 MG PO SCH ×2 (08:32→21:09)
--- NOTE | 2017-04-05 08:32 | RAD ---
HISTORY: Evaluate for obstruction, fever COMPARISONS: CT dated April 03, 2017 VIEWS: Frontal views of the abdomen. FINDINGS: BOWEL: There is a nonspecific bowel gas pattern, with nondilated small bowel gas noted. There is minimal stool within the colon. CALCULI: There are no abnormal calculi. BONES AND SOFT TISSUES: There are no osseous abnormalities. OTHER FINDINGS: The lung bases are clear. There is no subphrenic gas. IMPRESSION: NONSPECIFIC BOWEL GAS PATTERN. NO APPRECIABLE FREE INTRAPERITONEAL AIR.
[2017-04-05] MEDS: Polyethylene Glycol 3350* 17 GM PACKET PO SCH (08:33)
[2017-04-05] MEDS: Acetaminophen TAB* 325 MG PO PRN ×2 (08:35→21:11)
[2017-04-05] MEDS: Enoxaparin(*) 40 MG/0.4 ML SYR SUBCUT SCH (12:18)
[2017-04-05] MEDS: Senna TAB PO SCH (21:09)
[2017-04-06] MEDS ORDERED: CMCS:Melatonin (NF) 3 MG TAB PO PRN (00:56)
[2017-04-06] MEDS: Omeprazole CAP* 20 MG PO SCH (05:16)
[2017-04-06] MEDS: Clindamycin 600 MG IVPREMIX(* 600 MG/50 ML SDV IV SCH (05:16)
--- NOTE | 2017-04-06 08:07 | PN ---
Subjective Date of Service: 04/06/17 Interval History: Pt is feeling a little better today. He states his throat is not sore at all any more. He tolerated the regular food without increased pain. He had an episode of diarrhea this AM. Objective Active Medications: Acetaminophen (Tylenol Tab*) 650 mg PO Q4H PRN PRN Reason: FEVER/PAIN Last Admin: 04/05/17 21:11 Dose: 650 mg Docusate Sodium (Colace Cap*) 100 mg PO BID [facility] Last Admin: 04/05/17 21:09 Dose: 100 mg Enoxaparin Sodium (Lovenox(*)) 40 mg SUBCUT Q24H [facility] Last Admin: 04/05/17 12:18 Dose: 40 mg Clindamycin HCl/Dextrose (Cleocin 600 Mg Ivpremix(*) Sdv) 600 mg in 50 mls @ 100 mls/hr IV Q8H [facility] Last Admin: 04/06/17 05:16 Dose: 100 mls/hr Ibuprofen (Motrin Tab*) 600 mg PO Q6H PRN PRN Reason: PAIN Melatonin (Melatonin (Nf)) 3 mg PO BEDTIME PRN PRN Reason: INSOMNIA Omeprazole (Prilosec Cap*) 20 mg PO 0600 [facility] Last Admin: 04/06/17 05:16 Dose: 20 mg Ondansetron HCl (Zofran Inj*) 4 mg IV Q6H PRN PRN Reason: NAUSEA Polyethylene Glycol/Electrolytes (Miralax*) 17 gm PO DAILY [facility] Last Admin: 04/05/17 08:33 Dose: 17 gm Senna (Senokot Tab*) 2 tab PO BEDTIME [facility] Last Admin: 04/05/17 21:09 Dose: 2 tab Vital Signs - 8 hr 04/06/17 03:20 Temperature 97.5 F Pulse Rate 57 Respiratory 16 Rate Blood Pressure 106/49 (mmHg) O2 Sat by Pulse 99 Oximetry Oxygen Devices in Use Now: None Appearance: Young male lying in bed, NAD Eyes: No Scleral Icterus Ears/Nose/Mouth/Throat: Clear Oropharnyx, Mucous Membranes Moist Respiratory: Symmetrical Chest Expansion and Respiratory Effort, Clear to Auscultation Cardiovascular: NL Sounds; No Murmurs; No JVD, RRR, No Edema Abdominal: NL Sounds; No Tenderness; No Distention Extremities: No Clubbing, Cyanosis Skin: No Rash or Ulcers, No Nodules or Sclerosis Neurological: Alert and Oriented x 3 Result Diagrams: 04/04/17 06:29 04/04/17 06:29 Additional Lab and Data: Lab Results 04/03/17 04/03/17 04/03/17 Range/Units 11:17 12:56 13:11 WBC (3.5-10.8) 10^3/ul RBC (4.0-5.4) 10^6/ul Hgb (14.0-18.0) g/dl Hct (42-52) % MCV (80-94) fL MCH (27-31) pg MCHC (31-36) g/dl RDW (10.5-15) % Plt Count (150-450) 10^3/ul MPV (7.4-10.4) um3 Neut % (Auto) (38-83) % Lymph % (Auto) (25-47) % Shelby % (Auto) (1-9) % Eos % (Auto) (0-6) % Baso % (Auto) (0-2) % Absolute Neuts (auto) (1.5-7.7) 10^3/ul Absolute Lymphs (auto) (1.0-4.8) 10^3/ul Absolute Monos (auto) (0-0.8) 10^3/ul Absolute Eos (auto) (0-0.6) 10^3/ul Absolute Basos (auto) (0-0.2) 10^3/ul Absolute Nucleated RBC 10^3/ul Nucleated RBC % INR (Anticoag Therapy) (0.77-1.02) APTT (26.0-36.3) seconds Sodium 133 (133-145) mmol/L Potassium 3.7 (3.5-5.0) mmol/L Chloride 100 L (101-111) mmol/L Carbon Dioxide 21 L (22-32) mmol/L Anion Gap 12 H (2-11) mmol/L BUN 8 (6-24) mg/dL Creatinine 0.64 L (0.67-1.17) mg/dL Est GFR ( Amer) 194.4 (>60) Est GFR (Non-Af Amer) 151.2 (>60) BUN/Creatinine Ratio 12.5 (8-20) Glucose 111 H (70-100) mg/dL Lactic Acid 0.7 (0.5-2.0) mmol/L Calcium 9.0 (8.6-10.3) mg/dL Total Bilirubin 0.40 (0.2-1.0) mg/dL AST 21 (13-39) U/L ALT 74 H (7-52) U/L Alkaline Phosphatase 60 (34-104) U/L Troponin I 0.03 (<0.04) ng/mL C-Reactive Protein 178.18 H (< 5.00) mg/L Total Protein 7.6 (6.4-8.9) g/dL Albumin 3.9 (3.2-5.2) g/dL Globulin 3.7 (2-4) g/dL Albumin/Globulin Ratio 1.1 (1-3) Lipase 27 (11.0-82.0) U/L Urine Color Urine Appearance Urine pH (5-9) Ur Specific Spring (1.010-1.030) Urine Protein (Negative) Urine Ketones (Negative) Urine Blood (Negative) Urine Nitrate (Negative) Urine Bilirubin (Negative) Urine Urobilinogen (Negative) Ur Leukocyte Esterase (Negative) Urine Glucose (Negative) Influenza A (Rapid) (Negative) Influenza B (Rapid) (Negative) Group A Strep Rapid Negative (Negative) Blood Type Antibody Screen 04/03/17 04/03/17 04/03/17 Range/Units 13:11 13:11 13:11 WBC 13.8 H (3.5-10.8) 10^3/ul RBC 5.08 (4.0-5.4) 10^6/ul Hgb 15.4 (14.0-18.0) g/dl Hct 46 (42-52) % MCV 91 (80-94) fL MCH 30 (27-31) pg MCHC 34 (31-36) g/dl RDW 14 (10.5-15) % Plt Count 239 (150-450) 10^3/ul MPV 8 (7.4-10.4) um3 Neut % (Auto) 78.8 (38-83) % Lymph % (Auto) 9.0 L (25-47) % Shelby % (Auto) 11.3 H (1-9) % Eos % (Auto) 0 (0-6) % Baso % (Auto) 0.9 (0-2) % Absolute Neuts (auto) 10.9 H (1.5-7.7) 10^3/ul Absolute Lymphs (auto) 1.2 (1.0-4.8) 10^3/ul Absolute Monos (auto) 1.6 H (0-0.8) 10^3/ul Absolute Eos (auto) 0 (0-0.6) 10^3/ul Absolute Basos (auto) 0.1 (0-0.2) 10^3/ul Absolute Nucleated RBC 0 10^3/ul Nucleated RBC % 0 INR (Anticoag Therapy) 1.19 H (0.77-1.02) APTT 34.0 (26.0-36.3) seconds Sodium (133-145) mmol/L Potassium (3.5-5.0) mmol/L Chloride (101-111) mmol/L Carbon Dioxide (22-32) mmol/L Anion Gap (2-11) mmol/L BUN (6-24) mg/dL Creatinine (0.67-1.17) mg/dL Est GFR ( Amer) (>60) Est GFR (Non-Af Amer) (>60) BUN/Creatinine Ratio (8-20) Glucose (70-100) mg/dL Lactic Acid (0.5-2.0) mmol/L Calcium (8.6-10.3) mg/dL Total Bilirubin (0.2-1.0) mg/dL AST (13-39) U/L ALT (7-52) U/L Alkaline Phosphatase (34-104) U/L Troponin I (<0.04) ng/mL C-Reactive Protein (< 5.00) mg/L Total Protein (6.4-8.9) g/dL Albumin (3.2-5.2) g/dL Globulin (2-4) g/dL Albumin/Globulin Ratio (1-3) Lipase (11.0-82.0) U/L Urine Color Urine Appearance Urine pH (5-9) Ur Specific Spring (1.010-1.030) Urine Protein (Negative) Urine Ketones (Negative) Urine Blood (Negative) Urine Nitrate (Negative) Urine Bilirubin (Negative) Urine Urobilinogen (Negative) Ur Leukocyte Esterase (Negative) Urine Glucose (Negative) Influenza A (Rapid) (Negative) Influenza B (Rapid) (Negative) Group A Strep Rapid (Negative) Blood Type A Positive Antibody Screen Negative 04/03/17 04/03/17 04/03/17 Range/Units 13:11 13:22 15:23 WBC (3.5-10.8) 10^3/ul RBC (4.0-5.4) 10^6/ul Hgb (14.0-18.0) g/dl Hct (42-52) % MCV (80-94) fL MCH (27-31) pg MCHC (31-36) g/dl RDW (10.5-15) % Plt Count (150-450) 10^3/ul MPV (7.4-10.4) um3 Neut % (Auto) (38-83) % Lymph % (Auto) (25-47) % Shelby % (Auto) (1-9) % Eos % (Auto) (0-6) % Baso % (Auto) (0-2) % Absolute Neuts (auto) (1.5-7.7) 10^3/ul Absolute Lymphs (auto) (1.0-4.8) 10^3/ul Absolute Monos (auto) (0-0.8) 10^3/ul Absolute Eos (auto) (0-0.6) 10^3/ul Absolute Basos (auto) (0-0.2) 10^3/ul Absolute Nucleated RBC 10^3/ul Nucleated RBC % INR (Anticoag Therapy) (0.77-1.02) APTT (26.0-36.3) seconds Sodium (133-145) mmol/L Potassium (3.5-5.0) mmol/L Chloride (101-111) mmol/L Carbon Dioxide (22-32) mmol/L Anion Gap (2-11) mmol/L BUN (6-24) mg/dL Creatinine (0.67-1.17) mg/dL Est GFR ( Amer) (>60) Est GFR (Non-Af Amer) (>60) BUN/Creatinine Ratio (8-20) Glucose (70-100) mg/dL Lactic Acid 0.9 (0.5-2.0) mmol/L Calcium (8.6-10.3) mg/dL Total Bilirubin (0.2-1.0) mg/dL AST (13-39) U/L ALT (7-52) U/L Alkaline Phosphatase (34-104) U/L Troponin I (<0.04) ng/mL C-Reactive Protein (< 5.00) mg/L Total Protein (6.4-8.9) g/dL Albumin (3.2-5.2) g/dL Globulin (2-4) g/dL Albumin/Globulin Ratio (1-3) Lipase (11.0-82.0) U/L Urine Color Yellow Urine Appearance Clear Urine pH 6.0 (5-9) Ur Specific Spring 1.020 (1.010-1.030) Urine Protein Negative (Negative) Urine Ketones 2+ H (Negative) Urine Blood Negative (Negative) Urine Nitrate Negative (Negative) Urine Bilirubin Negative (Negative) Urine Urobilinogen Negative (Negative) Ur Leukocyte Esterase Negative (Negative) Urine Glucose Negative (Negative) Influenza A (Rapid) Negative (Negative) Influenza B (Rapid) Negative (Negative) Group A Strep Rapid (Negative) Blood Type Antibody Screen Assess/Plan/Problems-Billing Mr Leach is a 26 yo M who presents with 5 days chills/myalgias, headache and 2 days abdominal pain found to have a fever and possible pharyngitis though no clear cause of his abdominal pain has been found. - Patient Problems (1) Pharyngitis Current Visit: Yes Status: Acute Code(s): J02.9 - ACUTE PHARYNGITIS, UNSPECIFIED SNOMED Code(s): 933002539 Comment: I suspect the patient's fever was secondary to a viral pharyngitis. Throat culture is still pending. As he is feeling better will d/c pt back to [place] to complete 7 days total of Abx. (2) Abdominal pain Current Visit: Yes Status: Acute Code(s): R10.9 - UNSPECIFIED ABDOMINAL PAIN SNOMED Code(s): 83630354 Comment: No clear cause of abdominal pain was found. ? ileus as he had not moved his bowels in several days. He has tolerated regular food and finally had a BM. Will d/c back to [place] today. (3) DVT prophylaxis Current Visit: Yes Status: Acute Code(s): PJP7612 - SNOMED Code(s): 867914751 Comment: bran (4) Full code status Current Visit: Yes Status: Acute Code(s): Z78.9 - OTHER SPECIFIED HEALTH STATUS SNOMED Code(s): 270192533
[2017-04-06] MEDS: Docusate CAP* 100 MG PO SCH (12:14)
[2017-04-06] MEDS: Polyethylene Glycol 3350* 17 GM PACKET PO SCH (12:14)
[2017-04-06 12:18] VITALS: BP 135/68
--- NOTE | 2017-04-07 02:06 | DS ---
CC: Provider, [facility] * DISCHARGE SUMMARY: DATE OF ADMISSION: 04/03/17 DATE OF DISCHARGE: 04/06/17 PRIMARY CARE PROVIDER: At [facility]. PRINCIPAL DIAGNOSES: 1. Pharyngitis. 2. Abdominal pain of unclear etiology. DISCHARGE MEDICATIONS: 1. Milk of magnesia 30 mL p.o. daily p.r.n. constipation. 2. Ibuprofen 600 mg p.o. q.6 hours p.r.n. pain. 3. Tylenol 650 mg p.o. q.6 hours p.r.n. pain. 4. Omeprazole 20 mg p.o. daily (new). 5. Clindamycin 300 mg p.o. t.i.d. x12 doses. HOSPITAL COURSE: Mr. Leach is a 26-year-old male, currently incarcerated at [facility] who presented to the emergency room on 04/03/17 with complaints of not feeling well. He complained of both sore throat and difficulty swallowing as well as abdominal pain. The patient was noted to have fevers as high as 105.9 in the emergency room. The patient was admitted for evaluation of this. With the complaints of abdominal pain, the patient did under go a plain CT scan of the abdomen, which did not reveal any acute findings. The patient subsequently diagnosed with pharyngitis. It was felt that this could potentially be viral; however, given his markedly elevated temperature, he was started on antibiotic therapy. Overall, the patient's pharyngitis has improved. There was exudate noted on his tonsils, which is no longer there. The patient will continue on clindamycin 300 mg p.o. t.i.d. for 12 more doses. Throat culture is pending at the time of this dictation. The patient's EBV IgM is negative; however, his EBV IgG is positive indicating past infection. His mono screen was negative. His HIV was nonreactive. Group A strep rapid test was negative and influenza A and B were also negative. The patient at this point has been tolerating a regular diet without any increased pain or difficulty. In terms of the abdominal pain, no clear etiology was identified. The patient reported no moving his bowels in several days. The patient ultimately was given a regular diet on 04/05/17, which he tolerated without any increased abdominal pain. I do question if the patient may have developed an ileus related to his likely viral, but potentially bacterial infection. The patient did have an episode of diarrhea on the morning of discharge. At this point, he is feeling better and he feels that he can go back to [place]. As the patient has been started on clindamycin, his bowel movements will need to be monitored. The patient did have a loose stool on the morning of discharge. If he begins to have 10 to 15 loose stools per day, one must entertain that the potential diagnosis of C. difficile colitis secondary to the clindamycin being utilized to treat his pharyngitis. FOLLOWUP CONCERNS: The patient is being discharged back to [facility] today, 04/06/17. ACTIVITY LEVEL: As tolerated. DIET: Regular. CONDITION ON DISCHARGE: Stable. TIME SPENT: 35 minutes were spent discharging this patient. [id number]/CPS #: [id number] KIERAN
== END 2017-04-06 11:45 | DRG 113 ==
LOC: ED 10:49 → MED 18:15 → EEVIPCON 18:15 → OBSVTOIN 04-04 11:25 → INTOOBSV 04-04 11:25
PROVIDERS: ADMIT Internal Medicine; ATTEND Hospitalist
DX: J02.9 Acute pharyngitis, unspecified (principal); D72.821 Monocytosis (symptomatic); R10.9 Unspecified abdominal pain; K21.9 Gastro-esophageal reflux disease without esophagitis; K27.9 Peptic ulcer, site unspecified, unspecified as acute or chronic, without hemorrhage or perforation; F17.210 Nicotine dependence, cigarettes, uncomplicated; Z79.1 Long term (current) use of non-steroidal anti-inflammatories (NSAID); Z79.899 Other long term (current) drug therapy; Z88.5 Allergy status to narcotic agent; Z88.0 Allergy status to penicillin; Z86.19 Personal history of other infectious and parasitic diseases
CPT/HCPCS: 36415; 71045; 74018; 74177; 80048; 80053; 81003; 83605; 83690; 84484; 85025; 85610; 85730; 86140; 86308; 86664; 86665; 86703; 86850; 86900; 86901; 87040; 87070; 87205; 87491; 87502; 87591; 87651; 93005; A9270-GY; G0378; J0744; J1650; J2270; J2405; J3490; Q9967